=== PATIENT | female | born 1990 | race Two or more races ===

== ENCOUNTER 2017-04-23 16:03 | Inpatient (IN) | payer BC, OTHER ==
[~2017-04-23] VITALS: Ht 167.6 cm; Wt 70.3 kg
[2017-04-23] MEDS ORDERED: PANT40TA2 PO (16:27)
[2017-04-23] MEDS ORDERED: ASPI81TA31 PO (16:27)
[2017-04-23] MEDS ORDERED: DOCU100C36 PO (16:27)
[2017-04-23] MEDS ORDERED: Z GUARD REMEDY PASTE 57 GM TUBE TOP PRN (16:30)
[2017-04-23 17:56] VITALS: BP 105/65
--- NOTE | 2017-04-23 18:04 | NUR ---
pt arrived at 1600 on a gurney. pt vitals checked. Bp 105/64 hr 61 RR 14 temp 97.9 02 sat at room air 97%. all pertinent assessments done. pt had no signs of acute distress. all belongings and meds reconciled. MRSA swab done. NIH scale and core measure for stroke done. pt baseline at 5 in stroke scale. meds recon done. pt is alert and oriented. pt states that she has difficulty swallowing. aspiration precautions done. will endorse new orders to coroner/medical examiner nurse.
[2017-04-23 20:11] VITALS: BP 106/59
[2017-04-23] MEDS: DOCUSATE SODIUM 100 MG CAPSULE PO SCH (21:20)
[2017-04-24] MEDS: PANTOPRAZOLE SODIUM 40 MG TABLET.DR PO SCH (06:42)
--- NOTE | 2017-04-24 06:48 | NUR ---
SLEPT WELL. NO DITRESS NOTED.WILL CONTINUE TO MONITOR FOR COMFORT AND SAFETY.
[2017-04-24 07:56] VITALS: BP 105/60
[2017-04-24 08:04] LABS: BASOPHILS % (AUTO) 0.5 % (0.0-2.0); EOSINOPHILS # (AUTO) 0.2 K/uL (0.0-0.7); EOSINOPHILS % (AUTO) 4.5 % (0.0-7.0); HEMATOCRIT 43.2 % (37-47); HEMOGLOBIN 14.1 G/DL (12.0-16.0); LYMPHOCYTES # (AUTO) 0.9 K/UL (0.8-4.8); LYMPHOCYTES % (AUTO) 17.2 % (20.5-51.5); MEAN CORPUSCULAR HEMOGLOBIN 29.6 UUG (27.0-31.0); MEAN CORPUSCULAR HGB CONC 33 g/dL (32.0-37.0); MEAN CORPUSCULAR VOLUME 90.3 FL (81.0-99.0); MONOCYTES # (AUTO) 0.4 K/UL (0.1-1.30); MONOCYTES % (AUTO) 8.3 % (0.0-11.0); NEUTROPHILS # (AUTO) 3.7 K/UL (1.8-8.9); NEUTROPHILS % (AUTO) 69.5 % (38.5-71.5); PLATELET COUNT (AUTO) 201 K/UL (150-450); RED BLOOD CELL COUNT(AUTO) 4.78 MIL/UL (4.2-5.4); WHITE BLOOD COUNT (AUTO) 5.2 K/UL (4.0-11.2)
[2017-04-24 08:07] LABS: CREATININE 0.7 mg/dL (0.6-1.3); MAGNESIUM 1.8 mg/dL (1.8-2.4); PHOSPHOROUS 4.2 mg/dL (2.5-4.9); POTASSIUM 4.3 mmol/L (3.5-5.1)
[2017-04-24] MEDS: DOCUSATE SODIUM 100 MG CAPSULE PO SCH ×2 (08:52→20:53)
[2017-04-24] MEDS: ASPIRIN 81 MG TAB.CHEW PO SCH (08:52)
--- NOTE | 2017-04-24 10:12 | NUR ---
Received patient awake, alert and oriented x4. Still with weakness over right side. Up with physical therapy. Tolerating therapy well. Stroke education done to patient and mother. No complaints of pain. Encouraged to call for needs.
--- NOTE | 2017-04-24 19:30 | NUR ---
Received patient awake, in bed resting. Family at bedside. No respiratory distress noted. No pain or discomfort reported by patient. Bed in lowest position with 2/4 side rails up for safety. Call light within reach. Will continue to monitor.
[2017-04-24 20:32] VITALS: BP 101/55
--- NOTE | 2017-04-25 06:54 | NUR ---
Patient in bed sleeping comfortably. No issues or concerns during the evening. Respirations are unlabored. No pain or distress observed. Will endorse to on coming nurse for continuity of care
[2017-04-25] MEDS: PANTOPRAZOLE SODIUM 40 MG TABLET.DR PO SCH (07:25)
[2017-04-25 09:11] VITALS: BP 106/62
[2017-04-25] MEDS: DOCUSATE SODIUM 100 MG CAPSULE PO SCH ×2 (09:12→20:04)
[2017-04-25] MEDS: ASPIRIN 81 MG TAB.CHEW PO SCH (09:12)
--- NOTE | 2017-04-25 14:16 | NUR ---
REHAB TEAM CONFERENCE 04/25/17
--- NOTE | 2017-04-25 17:04 | NUR ---
DAILY NOTED STROKE EDUCATION PROVIDED TO PATIENT AND HER MOM. EXPLAINING STROKE HANDOUT PROVIDED. I WENT THRU EACH PAGE BRIEFLY EXPLAIN THE TOPICS ANSWERE QUESTIONS OF MOM AND DAUGHTER AND LEFT PAMPHLET IN THE ROOM. ENCOURAGE HER TO READ AND ASK ANY OTHER QUESTIONS SHE OR MOM MAY HAVE. BOTH VERBALIZE UNDERSTANDING.
--- NOTE | 2017-04-25 20:00 | NUR ---
Received pt. on bed alert, awake and oriented to self, time and place. Mom at bedside during this time. No acute distress noted. No c/o pain or discomfort. Vital signs stable. All needs attended. Will continue to monitor.
[2017-04-25 20:20] VITALS: BP 90/52
--- NOTE | 2017-04-25 22:17 | NUR ---
Patient asleep during this time. No acute distress noted. Breathing even and unlabored with normal respirations. No c/o pain. DVT pumps on. Will continue to monitor.
[2017-04-26] MEDS: PANTOPRAZOLE SODIUM 40 MG TABLET.DR PO SCH (06:07)
--- NOTE | 2017-04-26 06:20 | NUR ---
Patient slept well during the shift. No acute distress noted. Denies pain. All due meds given and well tolerated. Kept clean, dry and comfortable. Call light within reach. All needs attended.
[2017-04-26] MEDS: DOCUSATE SODIUM 100 MG CAPSULE PO SCH ×2 (09:09→20:21)
[2017-04-26] MEDS: ASPIRIN 81 MG TAB.CHEW PO SCH (09:09)
--- NOTE | 2017-04-26 15:06 | NUR ---
Bio: SW met with pt at [facility] to assess for needs and provide support. Pt is a 27-year-old female admitted to ARU after having an acute CVA. 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 Per pt, her right arm is weak and she cannot walk without support. Psych: Pt appeared alert and oriented x4 during interview. She presented in a motivated mood, but reported that she felt tired. Pt has been in the hospital since April 23, 2017. SW reviewed pt's chart which confirmed that pt was coded for various substances. Paramedics found paraphernalia of bath/meth salts and marijuana edibles next to patient when she was found at home. Pt also tested positive for marijuana. Pt is pleasant and calm upon approach, however she appears guarded and unwilling to discuss substance use when family members are present. SW will follow up with patient in private to obtain further mental health/ substance abuse history. Social: Pt is single with no children. 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 She is studying computer programming. Per pt, she receives social support from friends. Pt's mother is currently visiting from [place] to help support and care for pt. Pt's brother will be coming to visit next week. Pt is determined to return to school after she recovers. Family would prefer pt return to [place] upon discharge. Goals: Pt is determined to improve strength and walk with a walker. Her goal is to return to school. SS: DINORAH engaged in active listening. SW provided emotional support and counseling. SW will discuss discharge options with both pt and family to determine an appropriate plan. SW will follow up with pt to discuss substance use and provide community referrals. SW will encourage pt to comply with rehab goals. SW will provide pt and family support in discharge decision making.
[2017-04-26 20:00] VITALS: BP 107/57
--- NOTE | 2017-04-26 20:00 | NUR ---
Received patient sitting on chair alert, awake and oriented x4. No acute distress noted. No SOB. No c/o pain or discomfort during this time. Family member at bedside. Pleasant and calm. Vital signs stable. Call light within reach. All needs attended. Will continue to monitor.
--- NOTE | 2017-04-26 22:30 | NUR ---
Patient resting well. No acute distress noted. Denies pain. Call light within reach. All needs attended. Will continue to monitor.
[2017-04-27] MEDS: PANTOPRAZOLE SODIUM 40 MG TABLET.DR PO SCH (06:21)
--- NOTE | 2017-04-27 06:30 | NUR ---
Patient slept well throughout the shift. No acute distress noted. Due meds given and well tolerated. No c/o pain. Kept clean, dry and comfortable. Call light within reach. Will continue to monitor.
[2017-04-27 08:00] VITALS: BP 95/50
[2017-04-27] MEDS: DOCUSATE SODIUM 100 MG CAPSULE PO SCH ×2 (09:00→20:14)
[2017-04-27] MEDS: ASPIRIN 81 MG TAB.CHEW PO SCH (09:53)
--- NOTE | 2017-04-27 18:38 | NUR ---
PT TOOk meds as prescribed and participated in therapy. pt had no orders. pt showed some improvement in strength on arms in legs according to pt and OT. pt assisted to needs. family by bedside and was assisted to the bathroom. pt had no nih changes. no signs of acute distress. will report to academic specialist nurse.
[2017-04-27 19:52] VITALS: BP 104/69
[2017-04-28] MEDS: PANTOPRAZOLE SODIUM 40 MG TABLET.DR PO SCH (06:06)
--- NOTE | 2017-04-28 06:18 | NUR ---
AAOx4 OOB at beginning of shift. Right side weakness noted. Able to brush her teeth with her left hand while her right hand she was holding emesis basin. Denies any pain nor any discomfort. Vitals signs stable.Afebrile. Ambulates to the BR with supervision. Voiding freely. Slept well. Tolerated po meds well. Needs attended. Fall precautions maintained. Call shoemaker within reach, Answer calls promptly.
[2017-04-28 08:00] VITALS: BP 117/63
--- NOTE | 2017-04-28 08:30 | NUR ---
Received patient awake, alert and oriented. With R sided weakness. No complaints of pain/ discomfort. Not in any from of distress. Call light within reach. Encouraged to call for needs.
[2017-04-28] MEDS: ASPIRIN 81 MG TAB.CHEW PO SCH (09:18)
[2017-04-28] MEDS: DOCUSATE SODIUM 100 MG CAPSULE PO SCH ×2 (09:18→20:35)
--- NOTE | 2017-04-28 11:00 | NUR ---
Went outside to patio with mother. With visitors at dining area. No complaints of discomfort.
--- NOTE | 2017-04-28 16:31 | NUR ---
Asleep, non-labored breathing. Call light within reach. With mother at bedside. Attended to needs promptly.
[2017-04-28 19:56] VITALS: BP 93/37
--- NOTE | 2017-04-28 20:00 | NUR ---
Patient alert and oriented x4. Able to make needs known. Family at bedside during this time. No acute distress noted. Breathing even and unlabored with normal respirations. All due meds given as ordered and well tolerated. call light within reach. DVT pumps on. All needs attended. Will continue to monitor.
[2017-04-29] MEDS: PANTOPRAZOLE SODIUM 40 MG TABLET.DR PO SCH (06:17)
[2017-04-29 06:47] VITALS: BP 99/54
--- NOTE | 2017-04-29 06:47 | NUR ---
Patient slept well. No complaints of pain or discomfort during the shift. DVT pumps on. Vital signs stable, BP 99/54, HR 69, RR 18, Temp 97.5, O2 sat 97% RA. All needs anticipated
[2017-04-29 07:42] LABS: BASOPHILS % (AUTO) 0.6 % (0.0-2.0); EOSINOPHILS # (AUTO) 0.2 K/uL (0.0-0.7); EOSINOPHILS % (AUTO) 3.3 % (0.0-7.0); HEMATOCRIT 41.3 % (37-47); HEMOGLOBIN 13.9 G/DL (12.0-16.0); LYMPHOCYTES # (AUTO) 1.1 K/UL (0.8-4.8); LYMPHOCYTES % (AUTO) 19.6 % (20.5-51.5); MEAN CORPUSCULAR HEMOGLOBIN 30.4 UUG (27.0-31.0); MEAN CORPUSCULAR HGB CONC 34 g/dL (32.0-37.0); MONOCYTES # (AUTO) 0.4 K/UL (0.1-1.30); MONOCYTES % (AUTO) 7.7 % (0.0-11.0); NEUTROPHILS # (AUTO) 3.8 K/UL (1.8-8.9); NEUTROPHILS % (AUTO) 68.8 % (38.5-71.5); PLATELET COUNT (AUTO) 202 K/UL (150-450); RED BLOOD CELL COUNT(AUTO) 4.59 MIL/UL (4.2-5.4); WHITE BLOOD COUNT (AUTO) 5.5 K/UL (4.0-11.2)
--- NOTE | 2017-04-29 07:42 | NUR ---
Received patient awake, alert and oriented. Resting in bed. No complaints of pain/ discomfort. Not in ay form of distress. Call light within reach. Encouraged to call for needs.
[2017-04-29 08:43] LABS: THYROID STIMULATING HORMONE 1.886 mIU/mL (0.358-3.740)
[2017-04-29 08:49] LABS: BILIRUBIN,TOTAL 0.4 mg/dL (0.2-1.0); CREATININE 0.6 mg/dL (0.6-1.3); MAGNESIUM 1.6 mg/dL (1.8-2.4); PHOSPHOROUS 3.7 mg/dL (2.5-4.9); POTASSIUM 3.9 mmol/L (3.5-5.1); TOTAL PROTEIN, SERUM 7.2 g/dL (6.4-8.2)
[2017-04-29] MEDS: DOCUSATE SODIUM 100 MG CAPSULE PO SCH ×2 (08:57→20:37)
[2017-04-29] MEDS: ASPIRIN 81 MG TAB.CHEW PO SCH (08:57)
--- NOTE | 2017-04-29 10:47 | NUR ---
Up with occupational therapy. Tolerating therapy well. No complaints of discomfort or pain.
[2017-04-29] MEDS ORDERED: MAGNESIUM OXIDE 400 MG TABLET PO ONE (17:00)
--- NOTE | 2017-04-29 19:30 | NUR ---
Received patient sitting up in chair at bedside. Mother at bedside as well. Alert and verbally responsive. Able to make needs known. Raheem any pain and discomfort. No acute distress noted. No SOB. Right side weakness still noted, but patient able to lift right arm up slowly and slightly squeeze my hand. Patient also able to bring cup up to mouth slowly. Able to raise right leg slightly. Patient noted to be in good spirits. Kept clean and dry. All needs attended to promptly. Call light within reach. Will continue to monitor.
[2017-04-29 20:29] VITALS: BP 100/61
[2017-04-30] MEDS: PANTOPRAZOLE SODIUM 40 MG TABLET.DR PO SCH (06:24)
--- NOTE | 2017-04-30 06:43 | NUR ---
Patient slept comfortably through out the night. No c/o pain and discomfort. No acute distress. Kept clean and dry. 7am med given. All needs attended to promptly. Call light within reach. Will continue to monitor.
[2017-04-30 07:25] VITALS: BP 98/54
[2017-04-30] MEDS: DOCUSATE SODIUM 100 MG CAPSULE PO SCH ×2 (09:07→20:17)
[2017-04-30] MEDS: ASPIRIN 81 MG TAB.CHEW PO SCH (09:07)
[2017-04-30 20:19] VITALS: BP 102/66
[2017-04-30 22:05] VITALS: BP 102/66
[2017-05-01] MEDS: PANTOPRAZOLE SODIUM 40 MG TABLET.DR PO SCH (06:22)
[2017-05-01 07:15] VITALS: BP 91/47
[2017-05-01] MEDS: ASPIRIN 81 MG TAB.CHEW PO SCH (08:30)
[2017-05-01] MEDS: DOCUSATE SODIUM 100 MG CAPSULE PO SCH ×2 (08:30→20:51)
--- NOTE | 2017-05-01 19:30 | NUR ---
Report received. Patient in bed watching TV. NAD noted. Able to make needs known. Denies pain and discomfort. Addendum: 05/02/17 at 0308 by AUGUSTO CARMICHAEL RN Amended: Links added. Addendum: 05/02/17 at 0310 by AUGUSTO CARMICHAEL RN Amended: Links added.
[2017-05-01 20:29] VITALS: BP 100/67
[2017-05-02] MEDS: PANTOPRAZOLE SODIUM 40 MG TABLET.DR PO SCH (06:25)
--- NOTE | 2017-05-02 07:00 | NUR ---
Condition unchanged. Slept well during the night. Report to am shift RN.
--- NOTE | 2017-05-02 08:00 | NUR ---
Encouraged pt to be as independent. Pt agreeable with plan. Call light is within reach.
[2017-05-02 08:28] VITALS: BP 101/57
[2017-05-02] MEDS: DOCUSATE SODIUM 100 MG CAPSULE PO SCH ×2 (08:39→20:43)
[2017-05-02] MEDS: ASPIRIN 81 MG TAB.CHEW PO SCH (08:39)
--- NOTE | 2017-05-02 14:28 | NUR ---
Rehab Team Conference 05/02/17
--- NOTE | 2017-05-02 18:30 | NUR ---
Pt took shower today. Pt ambulated around hallway with mother. Call light is within reach.
[2017-05-02 19:58] VITALS: BP 106/68
--- NOTE | 2017-05-02 20:00 | NUR ---
PATIENT AWAKE IN BED, WITH MOTHER AT BEDSIDE. PATIENT IS A/O X4. DENIES ANY PAIN OR DISCOMFORT. NO RESP. DISTRESS NOTED. VSS. CALL LIGHT IN REACH. ALL NEEDS ATTENDED. WILL CONTINUE TO MONITOR.
[2017-05-03] MEDS: PANTOPRAZOLE SODIUM 40 MG TABLET.DR PO SCH (06:30)
--- NOTE | 2017-05-03 06:47 | NUR ---
PATIENT ASLEEP IN BED. EASILY AROUSABLE. SLEPT WELL THROUGHOUT THE NIGHT. CALL LIGHT IN REACH. ALL NEEDS ATTENDED. WILL CONTINUE TO MONITOR AND ASSESS.
[2017-05-03] MEDS: ASPIRIN 81 MG TAB.CHEW PO SCH (08:42)
[2017-05-03] MEDS: DOCUSATE SODIUM 100 MG CAPSULE PO SCH ×2 (08:42→20:00)
[2017-05-03 08:52] VITALS: BP 104/59
[2017-05-03 20:35] VITALS: BP 109/73
--- NOTE | 2017-05-03 22:00 | NUR ---
Easily awakens, no distress noted or voiced, Quickly went back to sleep
--- NOTE | 2017-05-04 05:43 | NUR ---
Slept most of the night,able to turn about in bed on her own
[2017-05-04] MEDS: PANTOPRAZOLE SODIUM 40 MG TABLET.DR PO SCH (06:42)
[2017-05-04 08:00] VITALS: BP 103/66
--- NOTE | 2017-05-04 08:45 | NUR ---
Received patient, awake, alert and oriented. No complaints of pain / discomfort at the moment. Still with right sided weakness but no noticeable neglect. Assisted to bathroom with stand by assist using cane.
[2017-05-04] MEDS: ASPIRIN 81 MG TAB.CHEW PO SCH (09:51)
[2017-05-04] MEDS: DOCUSATE SODIUM 100 MG CAPSULE PO SCH ×2 (09:51→20:27)
--- NOTE | 2017-05-04 14:50 | NUR ---
up with occupational therapy, tolerated therapy well. no complaints of discomfort/pain.
--- NOTE | 2017-05-04 19:30 | NUR ---
Received patient on bed, alert, awake and oriented x4. Able to make needs known. Mom at bedside. No acute distress noted. No complaints of pain or discomfort. No SOB. Vital signs stable. Call light within reach. All needs attended. Will continue to monitor
[2017-05-04 20:59] VITALS: BP 123/76
[2017-05-05] MEDS: PANTOPRAZOLE SODIUM 40 MG TABLET.DR PO SCH (06:20)
--- NOTE | 2017-05-05 06:51 | NUR ---
Patient slept well throughout the shift. No complaints of pain or discomfort. Due meds given as ordered and well tolerated. Call light within reach. Kept clean, dry and comfortable. All needs attended.
[2017-05-05] MEDS: ASPIRIN 81 MG TAB.CHEW PO SCH (08:04)
[2017-05-05] MEDS: DOCUSATE SODIUM 100 MG CAPSULE PO SCH ×2 (08:04→20:52)
--- NOTE | 2017-05-05 08:49 | NUR ---
PT SLEEPING IN BED, AWAKENS TO NAME. MORNING MEDICATIONS GIVEN, ALL SAFETY AND COMFORT MEASURES ATTENDED TOO, CALL LIGHT IN REACH. LEFT PT SITTING UP IN BED EATING BREAKFAST
[2017-05-05 08:55] VITALS: BP 93/53
--- NOTE | 2017-05-05 15:50 | NUR ---
PT AMBULATING IN HALLWAY WITH MOTHER
--- NOTE | 2017-05-05 18:45 | NUR ---
NO CHANGES NOTED THROUGHOUT SHIFT
--- NOTE | 2017-05-05 19:30 | NUR ---
END OF SHIFT NOTES. PT RECEIVED IN BED, AWAKE. MOTHER AT BEDSIDE. A/OX4. ABLE TO MAKE NEEDS KNOWN. V/S STABLE. IN NO ACUTE DISTRESS. NO C/O PAIN. SAFETY MEASURES IMPLEMENTED. CALL LIGHT WITHIN REACH. Addendum: 05/06/17 at 0604 by GABBIE DENG RN THIS IS BEGINNING OF SHIFT NOTES.
[2017-05-05 21:03] VITALS: BP 104/68
--- NOTE | 2017-05-06 06:04 | NUR ---
END OF SHIFT NOTES. PT SLEPT WELL THROUGHOUT SHIFT. ALL NEEDS ATTENDED. SAFETY MAINTAINED. CALL LIGHT WITHIN REACH.
[2017-05-06] MEDS: PANTOPRAZOLE SODIUM 40 MG TABLET.DR PO SCH (06:47)
[2017-05-06 08:00] VITALS: BP 90/51
--- NOTE | 2017-05-06 08:00 | NUR ---
Pt received awake,alert.Denies pain,discomfort.Pt mother at bedside.All needs attended.Call light within reach.
[2017-05-06] MEDS: ASPIRIN 81 MG TAB.CHEW PO SCH (08:51)
[2017-05-06] MEDS: DOCUSATE SODIUM 100 MG CAPSULE PO SCH ×2 (08:51→20:40)
--- NOTE | 2017-05-06 20:00 | NUR ---
RECEIVED PT AWAKE, ALERT & ORIENTED X3 W/ PLEASANT PERSONALITY. HAS R SIDED WEAKNESS W/ CLEAR SPEECH. DENIES DISCOMFORTS.NOT IN ANY DISTRESS.
[2017-05-06 22:00] VITALS: BP 110/42
--- NOTE | 2017-05-07 06:00 | NUR ---
SLEPT WELL. DENIES DISCOMFORTS ALL NIGHT.
[2017-05-07] MEDS: PANTOPRAZOLE SODIUM 40 MG TABLET.DR PO SCH (06:36)
[2017-05-07 08:00] VITALS: BP 97/59
[2017-05-07] MEDS: ASPIRIN 81 MG TAB.CHEW PO SCH (09:26)
[2017-05-07] MEDS: DOCUSATE SODIUM 100 MG CAPSULE PO SCH ×2 (09:26→20:42)
--- NOTE | 2017-05-07 20:00 | NUR ---
With mom, in good spirits no distress noted or voiced
[2017-05-07 21:09] VITALS: BP 103/60
--- NOTE | 2017-05-08 04:56 | NUR ---
Slept most of the night,able to move about in bed on her own.No distress noted or voiced
[2017-05-08] MEDS: PANTOPRAZOLE SODIUM 40 MG TABLET.DR PO SCH (06:41)
[2017-05-08 08:19] VITALS: BP 98/50
[2017-05-08] MEDS: DOCUSATE SODIUM 100 MG CAPSULE PO SCH ×2 (09:55→21:20)
[2017-05-08] MEDS: ASPIRIN 81 MG TAB.CHEW PO SCH (09:55)
[2017-05-08 20:15] VITALS: BP 108/63
--- NOTE | 2017-05-08 21:00 | NUR ---
Patient in bed, non SOB denies chest pain. Neuro check done, patient has clear speech facial drooping slightly & right hand was able to hold a cup of water. Family in room. Will continue to monitor.
[2017-05-09] MEDS: PANTOPRAZOLE SODIUM 40 MG TABLET.DR PO SCH (06:20)
--- NOTE | 2017-05-09 07:00 | NUR ---
Patient slept well, assisted to the bathroom PRN. No significant change.
[2017-05-09 08:22] VITALS: BP 112/65
--- NOTE | 2017-05-09 09:00 | NUR ---
PT WENT OUT ON THE PATIO WITH MOTHER VIA W/C . TOLERATED WELL. NO APPARENT DISTRESS NOTED SO FAR. PT STILL HAS RESIDUAL OF SLIGHT WEAKNESS ON THE RIGHT UPPER AND LOWER EXTREMETY.
[2017-05-09] MEDS: ASPIRIN 81 MG TAB.CHEW PO SCH (09:47)
[2017-05-09] MEDS: DOCUSATE SODIUM 100 MG CAPSULE PO SCH ×2 (09:47→20:46)
--- NOTE | 2017-05-09 10:30 | NUR ---
PT TOOK SHOWER WITH MOTHER ASSISTANCE TOLERATED
--- NOTE | 2017-05-09 14:12 | NUR ---
Rehab Team Conference 05/09/17
[2017-05-09 20:00] VITALS: BP 105/68
--- NOTE | 2017-05-09 20:00 | NUR ---
Received pt on bed awake, alert and oriented x4. Able to make needs known. Mom at bedside. No apparent distress noted. No complaints of pain. DVT pumps on. call light within reach. All needs attended. Will continue to monitor.
--- NOTE | 2017-05-09 22:00 | NUR ---
PT.IS SLEEPING @ THIS TIME.
--- NOTE | 2017-05-10 05:17 | NUR ---
SLEPT WELL.NO DISCOMFORTS ALL NIGHT.
[2017-05-10] MEDS: PANTOPRAZOLE SODIUM 40 MG TABLET.DR PO SCH (06:44)
[2017-05-10 08:16] VITALS: BP 103/62
[2017-05-10] MEDS: ASPIRIN 81 MG TAB.CHEW PO SCH (09:44)
[2017-05-10] MEDS: DOCUSATE SODIUM 100 MG CAPSULE PO SCH ×2 (09:44→20:38)
--- NOTE | 2017-05-10 18:53 | NUR ---
CONDITION STABLE AND UNCHANGED ALL DAY. TOLERATED PT/OT THERAPY. VSS.
[2017-05-10 20:18] VITALS: BP 116/71
[2017-05-11] MEDS: PANTOPRAZOLE SODIUM 40 MG TABLET.DR PO SCH (06:40)
--- NOTE | 2017-05-11 07:40 | NUR ---
103/67 B/P, 100% O2 saturation finger probe, 18 respirations, 66 pulse, 98.1 F oral temp. Patient noted sitting up in bed using Laptop, denies pain, no signs of distress noted, call light in reach, bed locked
[2017-05-11] MEDS: ASPIRIN 81 MG TAB.CHEW PO SCH (08:30)
[2017-05-11] MEDS: DOCUSATE SODIUM 100 MG CAPSULE PO SCH ×2 (08:30→20:35)
[2017-05-11 10:22] VITALS: BP 103/67
[2017-05-11 20:10] VITALS: BP 105/72
--- NOTE | 2017-05-12 05:20 | NUR ---
AAOX4 MOTHER AT BEDSIDE. RIGHT SIDED WEAKNESS NOTED. OOB TO THE BR WITH SUPERVISION. NEEDS ATTENDED. FALL PRECAUTIONS MAINTAINED. NO ACUTE DISTRESS NOTED. VSS. WILL MONITOR PATIENT,
[2017-05-12] MEDS: PANTOPRAZOLE SODIUM 40 MG TABLET.DR PO SCH (06:07)
--- NOTE | 2017-05-12 07:55 | NUR ---
Received patient sitting in bed. Alert and oriented x4. No complaints of pain or discomfort at this time. Call light within reach. Will continue to monitor
[2017-05-12 08:00] VITALS: BP 94/58
[2017-05-12] MEDS: DOCUSATE SODIUM 100 MG CAPSULE PO SCH ×2 (08:41→20:59)
[2017-05-12] MEDS: ASPIRIN 81 MG TAB.CHEW PO SCH (08:41)
--- NOTE | 2017-05-12 09:44 | NUR ---
Up in bed. Taking a shower. Able to shower, set-up and stand by assist.
--- NOTE | 2017-05-12 18:03 | NUR ---
With mother at bedside. Patient awake sitting in bed. No other discomforts noted.
[2017-05-12 20:35] VITALS: BP 101/61
--- NOTE | 2017-05-13 05:33 | NUR ---
CONDITION UNCHANGED. AAOX4 OOB TO THE BR. VOIDING WELL.NEEDS ATTENDED. VSS. DENIES ANY PAIN NOR ANY DISCOMFORT. KEPT COMFORTABLE.WILL MONITOR PATIENT. SLEPT WELL.
[2017-05-13] MEDS: PANTOPRAZOLE SODIUM 40 MG TABLET.DR PO SCH (06:17)
[2017-05-13 08:16] VITALS: BP 95/58
--- NOTE | 2017-05-13 08:30 | NUR ---
Pt in room having breakfast R side weakness with slow speech, denies any discomfort at this time, family at bedside.
[2017-05-13] MEDS: ASPIRIN 81 MG TAB.CHEW PO SCH (10:25)
[2017-05-13] MEDS: DOCUSATE SODIUM 100 MG CAPSULE PO SCH ×2 (12:50→20:22)
--- NOTE | 2017-05-13 13:00 | NUR ---
Pt had PT today and able to ambulate by stand by assist, denies any discomfort at this time.
--- NOTE | 2017-05-13 17:45 | NUR ---
pt in room, feels positive about rehab, walking better without a walker, denies any discomfort at this time.
--- NOTE | 2017-05-13 20:00 | NUR ---
Pt alert and oriented x4. Able to make needs known. calm and cooperative to care. No acute distress noted. No complaints of pain or discomfort. Call light within reach. All needs attended. will continue to monitor.
[2017-05-13 20:34] VITALS: BP 103/64
--- NOTE | 2017-05-14 06:06 | NUR ---
Patient slept well throughout the shift. Denies pain. Call light within reach. All needs attended.
[2017-05-14] MEDS: PANTOPRAZOLE SODIUM 40 MG TABLET.DR PO SCH (06:15)
--- NOTE | 2017-05-14 08:00 | NUR ---
Awake, alert, oriented x 4, sitting at the edge of the bed, right sided weakness, right hand with stronger generator mechanic.
[2017-05-14 08:37] VITALS: BP 113/64
[2017-05-14] MEDS: ASPIRIN 81 MG TAB.CHEW PO SCH (08:46)
[2017-05-14] MEDS: DOCUSATE SODIUM 100 MG CAPSULE PO SCH ×2 (09:34→21:50)
--- NOTE | 2017-05-14 18:07 | NUR ---
Eating dinner fairly, using right hand to feed. Discussed with patient and mother regarding own medication, plan to ask about it with MD, denies taking it and does not want to continue it here and will bring the medication home.
[2017-05-14 20:51] VITALS: BP 98/59
[2017-05-15] MEDS: PANTOPRAZOLE SODIUM 40 MG TABLET.DR PO SCH (06:34)
[2017-05-15 08:00] VITALS: BP 100/64
[2017-05-15] MEDS: DOCUSATE SODIUM 100 MG CAPSULE PO SCH ×2 (09:17→20:46)
[2017-05-15] MEDS: ASPIRIN 81 MG TAB.CHEW PO SCH (09:17)
--- NOTE | 2017-05-15 09:32 | NUR ---
Rounds to patient. Mother at bedside. ADL's complete by patient. Given am meds. 4 p's addressed.
--- NOTE | 2017-05-15 19:00 | NUR ---
Received in room with mom at bedside,no distress noted.
--- NOTE | 2017-05-15 19:13 | NUR ---
Handoff with SBAR to night nurse and rounds to bedside.
[2017-05-15 20:07] VITALS: BP 102/67
--- NOTE | 2017-05-16 07:05 | NUR ---
slept well. possible discharge today.
[2017-05-16] MEDS: PANTOPRAZOLE SODIUM 40 MG TABLET.DR PO SCH (07:18)
[2017-05-16 08:43] VITALS: BP 100/63
[2017-05-16] MEDS: DOCUSATE SODIUM 100 MG CAPSULE PO SCH ×2 (09:16→20:50)
[2017-05-16] MEDS: ASPIRIN 81 MG TAB.CHEW PO SCH (09:16)
--- NOTE | 2017-05-16 09:46 | NUR ---
Received patient awake sitting in bed. No complaints of pain or discomfort. Patient eager to go home. Able to use right hand minimally for ADLs.
--- NOTE | 2017-05-16 13:57 | NUR ---
Interdisciplinary Team Summary
--- NOTE | 2017-05-16 18:31 | NUR ---
With mother at bedside. For possible discharge tomorrow. Attended to needs promptly. No other complaints of pain/ discomfort at this time.
--- NOTE | 2017-05-16 19:30 | NUR ---
Received patient sitting up in bed. Mother at bedside. Alert and verbally responsive. Able to make needs known. Denies any pain and discomfort. No acute distress. Able to lift up left arm with no difficulty. Patient is in good spirits. All needs attended to promptly. Call light within reach. Will continue to monitor.
[2017-05-16 20:00] VITALS: BP 109/71
[2017-05-17] MEDS: PANTOPRAZOLE SODIUM 40 MG TABLET.DR PO SCH (06:30)
--- NOTE | 2017-05-17 06:32 | NUR ---
Patient awake. Slept comfortably throughout the night. No c/o pain and discomfort. No acute distress noted. Kept clean and dry. All needs attended to promptly. Call light within reach. Will continue to monitor.
[2017-05-17 08:00] VITALS: BP 108/68
--- NOTE | 2017-05-17 08:41 | NUR ---
RECEIVED REPORT FROM SPORTS PHYSICAL THERAPIST NURSE, PATIENT NOTED WATCHING TV IN ROOM, NO SIGNS OF DISTRESS NOTED, NO COMPLAINTS OF PAIN
[2017-05-17] MEDS: ASPIRIN 81 MG TAB.CHEW PO SCH (08:43)
[2017-05-17] MEDS: DOCUSATE SODIUM 100 MG CAPSULE PO SCH (08:43)
[2017-05-17] MEDS ORDERED: ESCITALOPRAM OXALATE 10 MG TABLET PO SCH (09:00)
--- NOTE | 2017-05-17 16:00 | NUR ---
PATIENT DISCHARGED HOME, HOME HEALTH TO BE ARRANGED BY [employer] P[employer]ING [employer]URANCE, SENT HOME WITH CANE, INSTRUCTED PATIENT TO USE ASSISTIVE DEVICE FOR AMBULATION AND TRANSFERS, INSTRUCTED PATIENT TO TAKE MEDICATIONS DESCRIBED, EXIT CARE PROVIDED, SENT HOME WITH EDUCATION DISCHARGE PACKET, WENT HOME WITH VITAL SIGNS STABLE, ACCOMPANIED BY MOTHER AMBULATORY.
== END 2017-05-17 16:10 | disposition home health service (06) | DRG 56 ==
PROVIDERS: ADMIT Physical Medicine & Rehabilitation Pain Medicine; ATTEND Physical Medicine & Rehabilitation Pain Medicine
DX: I69.351 Hemiplegia and hemiparesis following cerebral infarction affecting right dominant side (principal); G92 Toxic encephalopathy; D68.59 Other primary thrombophilia; M21.371 Foot drop, right foot; Z74.09 Other reduced mobility; F12.90 Cannabis use, unspecified, uncomplicated; I69.398 Other sequelae of cerebral infarction
CPT/HCPCS: 36415; 83735; 84100; 84443; 85025; 92507; 92523; 97110; 97112; 97116; 97165; 97530; 97535